=== PATIENT | female | born 1985 ===

== ENCOUNTER 2020-06-28 06:36 | Inpatient (IN) | payer MEDICAID ==
[~2020-06-28 06:36] MED LIST: Lactated Ringers 1,000 ML IV SCH
[2020-06-28] MEDS ORDERED: Oxytocin 10 Units/1 ML SDV ONE ×2 (06:47→08:22)
[2020-06-28] MEDS ORDERED: cefOXitin 1 GM Vial ONE (06:47)
[2020-06-28] MEDS ORDERED: ePHEDrine 50 MG/ML SDV ONE (08:12)
[2020-06-28] MEDS ORDERED: cefOXitin 2 GM Vial ONE (08:23)
[2020-06-28] MEDS ORDERED: Lactated Ringers 1,000 ML ONE (08:34)
[2020-06-28] MEDS ORDERED: HYDROmorphone/Normal Saline 15 MG/30 ML PCA IV PRN ×2 (09:32→16:36)
[2020-06-28] MEDS ORDERED: Naloxone 0.4 MG/ML SDV IV PRN (10:00)
[2020-06-28] MEDS ORDERED: hydrOXYzine HCL 100 MG/2 ML SDV IM PRN (10:00)
[2020-06-28] MEDS ORDERED: Ondansetron 4 MG/2 ML SDV IVPUSH PRN (10:00)
[2020-06-28] MEDS: Acetaminophen 325 MG Tab PO SCH ×3 (10:17→21:50)
[2020-06-28] MEDS: Ibuprofen 600 MG Tab PO SCH ×3 (10:17→21:50)
[2020-06-28] MEDS: cefOXitin 2 GM in Sodium Chloride 0.9% 50 ML IV SCH ×2 (14:38→19:18)
[2020-06-28] MEDS: Dextrose 5%-Lactated Ringers 1,000 ML IV SCH ×3 (16:18→23:31)
[2020-06-29] MEDS: cefOXitin 2 GM in Sodium Chloride 0.9% 50 ML IV SCH ×4 (02:12→21:16)
[2020-06-29] MEDS: Acetaminophen 325 MG Tab PO SCH ×4 (04:42→21:26)
[2020-06-29] MEDS: Ibuprofen 600 MG Tab PO SCH ×3 (04:43→19:33)
[2020-06-29] MEDS ORDERED: Dextrose 5%-Lactated Ringers 1,000 ML IV SCH (06:47)
[2020-06-29] MEDS: oxyCODONE 5 MG Tab PO PRN ×4 (07:31→20:08)
--- NOTE | 2020-06-29 07:46 | PN ---
DATE OF SERVICE: 06/29/2020 SUBJECTIVE: Vida is postoperative day 1 following section. Vital signs have been stable. She has been afebrile. Oral intake 700, output via Tovar catheter 1475. 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 REVIEW OF SYSTEMS: Remainder of review of systems negative for any pertinent positives and negatives. OBJECTIVE: GENERAL: Vida Nair is a pleasant 35-year-old female, alert, orientated, talkative. VITAL SIGNS: TPR: 97.9, 94, 18. Blood pressure 106/48. HEENT: Negative. NECK: Supple. HEART: Regular rate and rhythm. LUNGS: Clear. ABDOMEN: Not examined per patient's request. EXTREMITIES: Reveal trace peripheral edema. SCDs are not on. ASSESSMENT: and repair of incarcerated incisional hernia. POSTOPERATIVE DIAGNOSIS: 1. Term , history of previous . 2. Incarcerated incisional hernia. Date of procedure 06/28/2020. Surgeon: Daniel Ellison MD. 3. Positive group B strep. PLAN: 1. Discontinue Tovar. 2. Discontinue MOBILE EQUIPMENT SERVICER. 3. Oxycodone 5 mg every 4 hours orally p.r.n. pain. 4. Colace 100 mg b.i.d. 5. Dulcolax 10 mg tabs b.i.d. 6. Decrease IV to 100 mL per hour. 7. Saline lock IV if oral intake adequate at 1000 mL. 8. May shower. 9. Ambulation encouraged. 10.We will evaluate p.r.n. or in a.m. Lissa Silverman PA-C /[id number]
[2020-06-29] MEDS: Bisacodyl 5 MG Tab PO SCH ×2 (09:11→21:26)
[2020-06-29] MEDS: Docusate Sodium 100 MG Cap PO SCH ×2 (09:11→21:26)
[2020-06-29] MEDS: Cyclobenzaprine 10 MG Tab PO PRN (15:44)
[2020-06-30] MEDS: Ibuprofen 600 MG Tab PO SCH ×3 (01:25→14:33)
[2020-06-30] MEDS: Acetaminophen 325 MG Tab PO SCH ×2 (04:28→11:34)
[2020-06-30] MEDS: oxyCODONE 5 MG Tab PO PRN ×2 (09:13→14:33)
[2020-06-30] MEDS: Docusate Sodium 100 MG Cap PO SCH (09:13)
[2020-06-30] MEDS: Bisacodyl 5 MG Tab PO SCH (09:14)
--- NOTE | 2020-06-30 11:02 | DISCH ---
ADMISSION DIAGNOSIS: Term . DISCHARGE DIAGNOSES: 1. section, repeat. 2. Repair of incarcerated incisional hernia. POSTOPERATIVE DIAGNOSES: 1. Term , history of previous . 2. Incarcerated incisional hernia. 3. Date of procedure: 06/28/2020. Surgeon: Daniel Ellison MD. 4. Positive group B Strep. HISTORY: Vida Nair is a pleasant 35-year-old female who is here for a repeat . After preoperative evaluation and discussion of possible risks and possible complications, she wished to proceed with surgical procedure. HOSPITAL COURSE: Vida had her section on 06/28/2020. She had no operative complications. On postoperative day #1, her Tovar was discontinued. She was started on oral pain medication and bowel stimulation. On postoperative day #2, she was able to be discharged to home without any complications. PHYSICAL EXAMINATION: GENERAL: Vida is a 35-year-old female. VITAL SIGNS: Height is 5 feet 4.96 inches, weight is 249 pounds, BMI is 41. TPR is 97.5, 97, 18, blood pressure 142/77. HEENT: Negative. NECK: Supple. HEART: Regular rate and rhythm. LUNGS: Clear. ABDOMEN: section incision is glued. It looks good. EXTREMITIES: Without peripheral edema. DISPOSITION: Discharged to home. CONDITION: Stable and improving. FOLLOWUP APPOINTMENT: Lissa Silverman PA-C, on 07/08/2020 at 12 p.m. NEW MEDICATIONS: 1. Colace 100 mg oral twice daily, #60. 2. Dulcolax 10 mg oral b.i.d., #60. 3. Ibuprofen 600 mg q.6 hours p.r.n. pain, #40. 4. Oxycodone 5 mg oral q.4 hours p.r.n. pain, #42. 5. Tylenol 650 mg oral q.6 hours p.r.n. pain. DIET: Usual diet as tolerated. Drink 8 to 10 glasses of water a day. ACTIVITY: No lifting over 10 pounds. May lift baby in car seat. Driving: Do not drive for 1 week and within 6 hours of narcotic pain medication. Shower/bathing: May shower. No tub bathing or swimming for 6 weeks. DISCHARGE INSTRUCTIONS: Notify provider if any fever, increased pain, nausea, vomiting, redness or drainage. Wound incision care: Keep site clean and dry. Wear abdominal binder until incision is healed. Pull up lower abdominal fold to keep skin from overlapping on incision. /[id number]
[2020-06-30] MEDS: Cyclobenzaprine 10 MG Tab PO PRN (11:34)
--- NOTE | 2020-07-06 10:48 | OR ---
DATE OF PROCEDURE: 06/28/2020 SURGEON: Daniel Ellison MD PREOPERATIVE DIAGNOSIS: Term with history of previous section. POSTOPERATIVE DIAGNOSES: 1. Term with history of previous section. 2. Incarcerated incisional hernia. OPERATIVE PROCEDURES: 1. Repeat section (13539). 2. Repair of incarcerated incisional hernia (77438). ANESTHESIA: Spinal. 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 Potential risks including bleeding, infection, injury to mother and/or baby as well as possibility of cardiopulmonary, septic, or hemorrhagic complications leading to were discussed, and the patient wishes to proceed. DETAILS OF PROCEDURE: The patient was taken to the operating room, placed in a supine position. After spinal anesthetic had been placed, a roll was placed underneath the right hip and a Tovar catheter inserted, and the abdomen prepped and draped. The previous transverse Pfannenstiel incision was reused and carried down through the skin and subcutaneous tissue and anterior rectus sheath. Subrectus sheath flaps were then raised superiorly and inferiorly. At the upper end of the rectus sheath flap, there was noted to be an incarcerated incisional hernia with there being a splaying of the rectus muscle allowing omentum to be prolapsing in a plane anterior to that level and the hernia sac was then dissected free using electrocautery and replaced back up into the upper abdomen. Remainder of the attachments between the rectus muscle were divided in the midline and the peritoneal reflection of the bladder on the uterus was divided and reflected downward. A transverse uterine segment incision was made and a viable male was delivered through vertex presentation. There was quite thick meconium, but we were able to suction the baby's nose and mouth out well before initial inspirations and the appeared to be doing quite well in the immediate postoperative period. The cord was clamped and cut and routine care given off the field and extended membranes were delivered without difficulty. The patient was given IV and intrauterine oxytocin and IV cefoxitin. Good uterine contractions were noted. The uterus was then closed with 2 layers of 2-0 Vicryl stitch as was the peritoneal reflection of the bladder on the uterus. The incisional hernia was then repaired with approximation of the rectus muscle and associated scar in fascia with a #2 Vicryl stitch. continued reapproximating those surfaces more inferiorly. The anterior rectus sheath was then approximated with the same #2 Vicryl stitch. The wound was irrigated with antibiotic-containing saline solution and closed with 2 layers of 3-0 and 4-0 Vicryl stitch deep and a 4-0 Vicryl subcuticular stitch followed by surgical glue. The patient was taken to the recovery room in satisfactory condition. Per ACOG guidelines, Judith Storm served as the assistant news director in this case as is indicated per those guidelines. Daniel Ellison MD /[id number]
== END 2020-06-30 18:47 | disposition home or self-care (01) | DRG 787 ==
LOC: JP.SDS 06:36 → JP.SDSSCHI 08:24 → JP.MS 09:16
PROVIDERS: ADMIT Surgery; ATTEND Surgery
PROC: 10D00Z1 Extraction of Products of Conception, Low, Open Approach (ICD-10-PCS; principal; 2020-06-28)
PROC: 0WQF0ZZ Repair Abdominal Wall, Open Approach (ICD-10-PCS; 2020-06-28)
DX: O34.211 Maternal care for low transverse scar from previous cesarean delivery (principal); K43.0 Incisional hernia with obstruction, without gangrene; O99.62 Diseases of the digestive system complicating childbirth; Z37.0 Single live birth
CPT/HCPCS: 36415; 36430; 59409; 80305-QW; 85025; 85460; 86850; 86900; 86901; 94762; A9270-GY; J0694; J1170; J2590; J2790; J3410; J7120; J7121